=== PATIENT | female | born 1950 | race African-American/Black ===

== ENCOUNTER → 2018-09-18 | Outpatient (CLI) | payer MEDICARE ==
[2015-11-09 09:39] VITALS: BP 151/74
[~2018-09-18] MED LIST: ASPI-630 PO; LOSA100T14 PO; MULT1TAB97 PO
--- NOTE | 2018-09-19 10:30 | KCIC ---
EXAM: Right foot 3 views DATE: 09/18/2018 12:00 AM INDICATION: Right foot pain, medial and lateral COMPARISON: No Prior FINDINGS: There is no evidence for acute fracture or dislocation. Bony deformity of the proximal and mid phalanx of the small toe centered at the PIP joint may be posttraumatic or postsurgical, with corticated margins suggesting chronic state. Small plantar calcaneal enthesophyte. No evidence of acute fracture or dislocation. In general joint spaces are grossly preserved without significant degenerative/proliferative change. IMPRESSION: No evidence of acute fracture or dislocation. Chronic deformity small toe PIP joint. Electronically signed by: Jose Jean Baptiste MD (09/19/2018 10:27 AM) [facility]
== END | disposition home or self-care (01) ==
LOC: KCIC 11:45
PROVIDERS: ATTEND Nurse Practitioner Gerontology
DX: M21.6X1 Other acquired deformities of right foot (principal); M77.31 Calcaneal spur, right foot
CPT/HCPCS: 73630

== ENCOUNTER → 2020-04-04 | Outpatient (CLI) | payer OTHER ==
[2015-11-09 09:39] VITALS: BP 151/74
--- NOTE | 2020-04-04 08:17 | RAD ---
US PELVIS COMPLETE History: Reason: lower abd pain / Spl. Instructions: / History: Comparison: None Technique: Grayscale and color Doppler imaging of the pelvis was performed using transabdominal techn ique. Transvaginal technique attempted although not completed due to patient discomfort. Findings: Prior hysterectomy. Bilateral ovaries not identified due to positioning and overlying structures. No adnexal mass. No free fluid. IMPRESSION: 1. Prior hysterectomy. 2. Bilateral ovaries not identified. Electronically signed by: Michael Ornelas DO (04/04/2020 8:15 AM) [id number]
--- NOTE | 2020-04-04 08:28 | RAD ---
US ABDOMEN COMPLETE History: Reason: LOWER ABD PAIN / Spl. Instructions: / History: Comparison: None. Technique: Sonographic examination of the abdomen was performed and multiple grayscale and color Dopp ler static images were obtained. Findings: Liver demonstrates normal echogenicity. The liver measures 15.3 cm. Portal flow is patent. Gallbladder has an unremarkable appearance. Common bile duct measures 4.5 mm in diameter. Visualized pancreas homogeneous. The right kidney measures 10.8 x 4.8 x 3.3 cm. No hydronephrosis. 1.8 x 1.6 x 1.5 cm. No follow-up im aging is recommended per consensus recommendations based on imaging criteria. The left kidney measures 10.4 0.2 x 5.4 cm. No hydronephrosis. 1.2 x 1.5 x 1.2 cm. No follow-up imagi ng is recommended per consensus recommendations based on imaging criteria. The spleen measures 8.1 cm. Visualized portions of the abdominal aorta and IVC are normal. IMPRESSION: 1. Unremarkable abdominal ultrasound. Electronically signed by: Michael Ornelas DO (04/04/2020 8:25 AM) [id number]
== END ==
LOC: US 07:03
PROVIDERS: ATTEND Family Medicine
DX: R10.30 Lower abdominal pain, unspecified (principal); Z90.710 Acquired absence of both cervix and uterus
CPT/HCPCS: 76700; 76856